=== PATIENT | female | born 1975 | race Caucasian/White ===

== ENCOUNTER → 2016-05-27 | Outpatient (CLI) | payer BC ==
--- NOTE | 2016-06-01 00:44 | MAM ---
History: Well woman exam. Date of exam: [05/27/2016 ] Services provided: Bilateral full field digital screening mammography. CAD, the images were reviewed with R2 computer aided detection. FINDINGS: Glandular tissue is [scattered glandular contour with increased mammographic density. No prior exam for comparison. No dominant mass, architectural distortion or clustered microcalcification. ] . 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
== END | disposition home or self-care (01) ==
LOC: MAMMO 14:42
PROVIDERS: ATTEND Obstetrics & Gynecology
DX: Z12.11 Encounter for screening for malignant neoplasm of colon (principal)

== ENCOUNTER → 2018-02-04 | Outpatient (CLI) | payer BC | LOC: RAD 10:51 | PROVIDERS: ATTEND Obstetrics & Gynecology | DX: R00.0 Tachycardia, unspecified (principal) ==

== ENCOUNTER → 2018-02-10 | Outpatient (CLI) | payer BC ==
--- NOTE | 2018-02-10 12:41 | RAD ---
Study: 3 Views of the Right Foot. Indication: PAIN IN RIGHT FOOT Comparison: None. Impression: Suture anchor medial navicular bone. Mild joint space narrowing first MTP joint. Calcaneal spurring Achilles tendon insertion and plantar fascia origin. No acute fracture or malalignment. Soft tissues are intact without radiopaque foreign body. Electronically signed by: Derian Flores MD 02/10/2018 12:39 PM [facility]
== END ==
LOC: RAD 09:14
PROVIDERS: ATTEND Orthopaedic Surgery
DX: M79.671 Pain in right foot (principal); M77.31 Calcaneal spur, right foot